=== PATIENT | female | born 1980 | race Caucasian/White ===

== ENCOUNTER 2017-02-18 20:11 | Emergency (ER) | payer OTHER ==
[~2017-02-18] VITALS: Ht 162.6 cm; Wt 95.5 kg
[2017-02-18] MEDS ORDERED: LEVO125 PO (20:39)
[2017-02-18 23:30] VITALS: BP 121/80
== END 2017-02-18 23:37 | disposition home or self-care (01) ==
LOC: EMS 20:13
DX: J98.01 Acute bronchospasm (principal); H57.8 Other specified disorders of eye and adnexa; R20.2 Paresthesia of skin
CPT/HCPCS: 99281; 99283

== ENCOUNTER 2017-02-24 20:21 | Emergency (ER) | payer OTHER ==
[~2017-02-24] VITALS: Ht 162.6 cm; Wt 95.0 kg
[~2017-02-24 20:21] MED LIST: LEVO125 PO
[2017-02-25 00:21] VITALS: BP 117/76
== END 2017-02-25 00:37 | disposition home or self-care (01) ==
LOC: EMS 20:22
DX: J40 Bronchitis, not specified as acute or chronic (principal); E03.9 Hypothyroidism, unspecified
CPT/HCPCS: 71020; 99284

== ENCOUNTER 2019-07-05 19:20 | Emergency (ER) | payer OTHER ==
[~2019-07-05] VITALS: Ht 165.1 cm; Wt 100.0 kg
[2019-07-05] MEDS ORDERED: IBUPROFEN 600 MG TABLET PO ONE (20:45)
[2019-07-05 20:57] VITALS: BP 116/80
== END 2019-07-05 21:40 | disposition home or self-care (01) ==
LOC: EMS 19:21
DX: M79.675 Pain in left toe(s) (principal); E03.9 Hypothyroidism, unspecified
CPT/HCPCS: 29550

== ENCOUNTER 2023-10-28 09:11 | Emergency (ER) | payer OTHER ==
[~2023-10-28] VITALS: Ht 160 cm; Wt 65.9 kg
[2023-10-28] MEDS ORDERED: KETOROLAC TROMETHAMINE 30 MG/ML VIAL IVP ONE (09:45)
[2023-10-28] MEDS ORDERED: SODIUM CHLORIDE 0.9% 1,000 ML IV ONE (09:45)
[2023-10-28 09:57] VITALS: TEMP 99
[2023-10-28 09:58] LABS: BASOPHILS % (AUTO) 0.4 % (0.0-2.0); EOSINOPHILS % (AUTO) 0.6 % (1.0-6.0); HEMATOCRIT 33.9 % (36-46); LYMPHOCYTES # (AUTO) 0.5 K/uL (1.0-4.8); LYMPHOCYTES % (AUTO) 9.1 % (22.0-44.0); MEAN CORPUSCULAR HEMOGLOBIN 26.3 pg (26.0-34.0); MEAN CORPUSCULAR HGB CONC 32.3 G/dL (31.0-37.0); MEAN CORPUSCULAR VOLUME 81 fL (80-100); MONOCYTES # (AUTO) 0.6 K/uL (0.1-1.0); MONOCYTES % (AUTO) 10.5 % (2.0-9.0); NEUTROPHILS # (AUTO) 4.7 K/uL (1.8-7.7); NEUTROPHILS % (AUTO) 79.4 % (40.0-70.0); PLATELET COUNT (AUTO) 416 K/uL (150-450); RED BLOOD CELL COUNT(AUTO) 4.16 MIL/uL (4.00-5.20); RED CELL DISTRIBUTION WIDTH 16.6 % (11.5-14.5); WHITE BLOOD COUNT (AUTO) 5.9 K/uL (4.5-11.0)
[2023-10-28 10:10] LABS: ANION GAP 9 mmol/L (8-16); CALCIUM, TOTAL 8.9 mg/dL (8.8-10.5); CARBON DIOXIDE 25 mmol/L (22-29); CHLORIDE 104 mmol/L (98-107); CREATININE 0.73 mg/dL (0.60-1.30); GLOMERULAR FILTR. RATE CALC > 60 mL/min (>60); GLUCOSE,RANDOM 96 mg/dL (70-110); POTASSIUM 3.8 mmol/L (3.5-5.1); SODIUM SERUM 138 mmol/L (136-145); UREA NITROGEN, BLOOD 9 mg/dL (7-18)
[2023-10-28 10:16] LABS: ALANINE AMINOTRANSFERASE 23 U/L (12-78); ALBUMIN 4.1 g/dL (3.4-5.0); ALKALINE PHOSPHATASE 75 U/L (46-116); ASPARTATE AMINOTRANSFERASE 19 U/L (15-37); BILIRUBIN,TOTAL 0.5 mg/dL (0.1-1.0); TOTAL PROTEIN, SERUM 7.8 g/dL (6.4-8.2)
[2023-10-28] MEDS ORDERED: MORPHINE SULFATE 2 MG/ML SYRINGE IVP ONE (11:15)
[2023-10-28 11:19] LABS: INFLUENZA A-RTPCR,COMBO POSITIVE FOR FLU A (NEGATIVE); INFLUENZA B-RTPCR,COMBO NEGATIVE FOR FLU B (NEGATIVE); RESPIRATORY SYNCYTIAL VRS-PCR NEGATIVE (NEGATIVE); SARS COVID19 RTPCR, COMBO NEGATIVE (NEGATIVE)
[2023-10-28] MEDS ORDERED: BENZ-227 PO (12:34)
[2023-10-28] MEDS ORDERED: ACET-3385 PO (12:34)
[2023-10-28] MEDS ORDERED: IBUP-1492 PO (12:34)
[2023-10-28 12:41] VITALS: BP 122/80; PULSE 90; RESP 18
== END 2023-10-28 13:30 | disposition home or self-care (01) ==
LOC: EMS 09:21
DX: J10.1 Influenza due to other identified influenza virus with other respiratory manifestations (principal); E03.9 Hypothyroidism, unspecified; Z20.822 Contact with and (suspected) exposure to COVID-19
CPT/HCPCS: 99284; 96374; 0241U; 71045; 96361; 96375; 80053; 84703; 85025; 36415; J1885; J2270; J7030

== ENCOUNTER 2024-12-04 12:16 | Emergency (ER) | payer OTHER ==
[~2024-12-04] VITALS: Ht 160 cm; Wt 66.0 kg
[~2024-12-04 12:16] MED LIST changes: +ACET-3385 PO; +BENZ-227 PO; +IBUP-1492 PO
[2024-12-04 12:24] VITALS: BP 94/54; PULSE 76; RESP 18; TEMP 98; O2SAT 100
[2024-12-04] MEDS: IBUPROFEN 600 MG TABLET PO ONE (16:07)
[2024-12-04] MEDS ORDERED: IBUP-1492 PO (19:40)
[2024-12-04] MEDS ORDERED: ACET-3385 PO (19:41)
== END 2024-12-04 16:28 | disposition home or self-care (01) ==
LOC: EMS 12:16
DX: S92.524A Nondisplaced fracture of middle phalanx of right lesser toe(s), initial encounter for closed fracture (principal); E03.9 Hypothyroidism, unspecified; W22.8XXA Striking against or struck by other objects, initial encounter; Y93.89 Activity, other specified; Y92.89 Other specified places as the place of occurrence of the external cause; Y99.8 Other external cause status
CPT/HCPCS: 99283